=== PATIENT | female | born 1955 | race Caucasian/White ===

== ENCOUNTER 2016-09-28 08:22 | Day surgery (SDC) | payer OTHER ==
[2016-09-28] MEDS ORDERED: CYCLOBENZAPRINE10 MG PO (09:03)
[2016-09-28] MEDS ORDERED: ROPINIROLE HCL2 MG PO (09:03)
[2016-09-28] MEDS ORDERED: AMLODIPINE BESYL5 MG PO (09:03)
[2016-09-28] MEDS ORDERED: OMEPRAZOLE20 M2 PO (09:04)
[2016-09-28] MEDS ORDERED: LOSARTAN-HCTZ1 EAC1 PO (09:04)
[2016-09-28] MEDS ORDERED: METOPROLOL SUC100 MG PO (09:05)
[2016-09-28] MEDS ORDERED: AMITRIPTYLINE H25 MG PO (09:05)
[2016-09-28] MEDS ORDERED: OXYBUTYNIN CHLOR5 MG PO (09:06)
[2016-09-28] MEDS ORDERED: ULTRAM50 MG PO (09:07)
[2016-09-28] MEDS ORDERED: FLUOXETINE HCL20 MG PO (09:07)
[2016-09-28] MEDS ORDERED: PROAIR RESPICL90 MCG IH (09:08)
[2016-09-28] MEDS ORDERED: ADVAIR 500/501 DISK IH (09:09)
== END 2016-09-28 15:05 | disposition home or self-care (01) ==
LOC: CATH 08:22
DX: I25.10 Atherosclerotic heart disease of native coronary artery without angina pectoris (principal); R55 Syncope and collapse; I10 Essential (primary) hypertension; Z79.82 Long term (current) use of aspirin; E66.01 Morbid (severe) obesity due to excess calories; Z83.3 Family history of diabetes mellitus; Z82.5 Family history of asthma and other chronic lower respiratory diseases; Z82.49 Family history of ischemic heart disease and other diseases of the circulatory system
CPT/HCPCS: 93005; C1769; C1887; J1644; J2250; J3010

== ENCOUNTER 2016-11-20 05:32 | Emergency (ER) | payer OTHER ==
[~2016-11-20] VITALS: Ht 165.1 cm; Wt 127.2 kg
[~2016-11-20 05:32] MED LIST: ADVAIR 500/501 DISK IH; AMITRIPTYLINE H25 MG PO; AMLODIPINE BESYL5 MG PO; CYCLOBENZAPRINE10 MG PO; FLUOXETINE HCL20 MG PO; LOSARTAN-HCTZ1 EAC1 PO; METOPROLOL SUC100 MG PO; OMEPRAZOLE20 M2 PO; OXYBUTYNIN CHLOR5 MG PO; PROAIR RESPICL90 MCG IH; ROPINIROLE HCL2 MG PO; ULTRAM50 MG PO
[2016-11-20 06:22] LABS: MCH 25.5 PG (29.0-34.0); MCHC 29.7 G/DL (30.0-36.0); MCV 85.9 FL (83-99); MEAN PLAT.VOLUME 8.4 uM^3 (9.5-12.4); PLATELET COUNT 188 K/uL (156-360); RBC DIS.WIDTH-CV 16.2 % (11.8-14.6); RED BLOOD COUNT 3.84 M/uL (3.80-5.20); WHITE BLOOD COUNT 8.7 K/uL (4.1-10.2)
[2016-11-20 06:27] LABS: CARBON DIOXIDE (BICARBONATE) 31.9 MEQ/L (20-31)
[2016-11-20 06:33] LABS: CHLORIDE 103 mEq/L (99-109); POTASSIUM 3.7 mEq/L (3.7-5.4); SODIUM 138 mEq/L (136-147)
[2016-11-20 06:35] LABS: GLUCOSE 110 mg/dL (70-99)
[2016-11-20 06:36] LABS: ANION GAP 10 MEQ/L (2-14)
[2016-11-20 06:39] LABS: GFR ESTIMATE (CALCULATED) > 59 mL/min/
[2016-11-20 06:40] LABS: UREA NITROGEN (BUN) 18 mg/dL (9-23)
[2016-11-20 06:43] LABS: TROP-I INTERPRETATION NEGATIVE; TROPONIN-I 0.02 ng/mL (0.0-0.30)
[2016-11-20] MEDS ORDERED: LOPRESSOR100 M1 PO (08:08)
[2016-11-20 08:15] VITALS: BP 118/71
== END 2016-11-20 08:22 | disposition home or self-care (01) ==
LOC: EME 05:32
PROVIDERS: Emergency Medicine
DX: R00.2 Palpitations (principal); I25.10 Atherosclerotic heart disease of native coronary artery without angina pectoris; I10 Essential (primary) hypertension; E78.5 Hyperlipidemia, unspecified; J45.909 Unspecified asthma, uncomplicated; Z95.1 Presence of aortocoronary bypass graft; Z96.653 Presence of artificial knee joint, bilateral; Z87.891 Personal history of nicotine dependence
CPT/HCPCS: 71020; 80048; 82803; 83605; 83880; 84484; 85027; 87040; 93005; 99281; 99285